=== PATIENT | male | born 1995 | race African-American/Black ===

== ENCOUNTER 2016-04-20 07:04 | Emergency (ER) | payer BC ==
[~2016-04-20] VITALS: Ht 172.7 cm; Wt 81.7 kg
[2016-04-20 08:13] VITALS: BP 119/65
== END 2016-04-20 08:19 | disposition home or self-care (01) ==
LOC: ER 07:04
DX: S01.81XA Laceration without foreign body of other part of head, initial encounter (principal); W01.198A Fall on same level from slipping, tripping and stumbling with subsequent striking against other object, initial encounter; Y93.89 Activity, other specified; Y92.89 Other specified places as the place of occurrence of the external cause; Y99.8 Other external cause status